=== PATIENT | female | born 1965 | race Caucasian/White ===

== ENCOUNTER 2017-02-21 14:09 | Emergency (ER) | payer MEDICARE ==
--- NOTE | ~2017-02-21 | CR211 ---
[facility] A Service of [facility] RADIOLOGY TEXT RESULTS PATIENT: TRINA HUFFMAN LOCATION: [facility] : 65 UNIT #: [id number] AGE: [address]: Kathy Lopez APRN SEX: F ORDER DR: [id number] [facility] [address] [place], [place] [address] [id number] E MR#: [id number] Acc #: [id number] NAME: TRINA HUFFMAN. : 1965 SEX: F STUDY DATE/TIME: 02/21/2017 14:48 UNIT: [facility] ROOM: STUDY DESCRIPTION: CR Ribs Uni 2 View W PA Ch Rt Attending Physician: Kathy Lopez A.P.R.N. Ordering Physician: Bao Yun M.D. Primary Care Physician: Karoline Plasencia M.D. MEDICAL IMAGING REPORT This report is preliminary unless electronic signature is present EXAM Right ribs 5 views HISTORY Right rib pain after fall today. FINDINGS 5 views of the right ribs demonstrate no fracture. No pneumothorax or pleural effusion on the right. Moderate right liq-ic-maxcv thoracic curve. Mild left upper lumbar curve. IMPRESSION Negative right ribs. Dictated by... Oscar Solomon M.D. THIS IS AN ELECTRONICALLY VERIFIED REPORT Oscar Solomon M.D. at 02/22/2017 3:00 PM AMA/chao TD: 02/22/2017 00:20 JOB #: [id number] MEDICAL IMAGING REPORT Page 1 of 1 COPY
== END 2017-02-21 16:18 | disposition home or self-care (01) ==
LOC: CFTX 14:09 → CED 14:09 → CFTX 16:00
DX: S20.211A Contusion of right front wall of thorax, initial encounter (principal); W22.8XXA Striking against or struck by other objects, initial encounter; Y92.009 Unspecified place in unspecified non-institutional (private) residence as the place of occurrence of the external cause
CPT/HCPCS: 71101; 99283